=== PATIENT | male | born 1970 | race Caucasian/White ===

== ENCOUNTER 2023-12-25 15:07 | Emergency (ER) | payer BC, OTHER ==
[2023-12-25] MEDS ORDERED: XYLOCAINE 1% HCL 20 ML MDV ONE ×2 (15:23→16:19)
[2023-12-25 15:29] VITALS: BP 125/76; PULSE 69; RESP 20; TEMP 98.1; O2SAT 96
[2023-12-25] MEDS ORDERED: BACIGUENT PACKET ONE (16:19)
[2023-12-25] MEDS ORDERED: Adacel Vial IM ONE (16:19)
[2023-12-25] MEDS: BACIGUENT PACKET TP ONE ×2 (16:20→16:26)
[2023-12-25] MEDS: Adacel Vial IM ONE (16:21)
[2023-12-25] MEDS: XYLOCAINE 1% HCL 20 ML MDV IJ ONE ×2 (16:25→16:26)
--- NOTE | 2023-12-25 16:39 | ERPHSYRPT ---
- History of Present Illness Time Seen by Provider: 12/25/23 16:00 Source: patient Exam Limitations: no limitations Patient Subjective Stated Complaint: Laceration Triage Nursing Assessment: Patient ambulated back to ED and transferred self to bed. Patient A+O X 3. Patient's skin pink, warm and dry. Patient complains of laceration to left hand in between 1st and 2nd digit while he was using a chain saw it slipped causing laceration. Patient has laceration in between 1st and 2nd digit 3 cm X 1.2 cm. Physician History: 53yo m presents via private vehicle for laceration to left hand. Pt states he cut his hand w/ a small battery powered chainsaw shortly [employer]. Pt denies any numbness/tingling in the fingers, has full ROM of wrist, hand and fingers. Pt is not sure when his last tetanus shot was given. Timing/Duration: today Severity: moderate Location: hands Possible Causes: other (chainsaw laceration) Allergies/Adverse Reactions: No Known Drug Allergies Allergy (Unverified 12/25/23 15:18) Hx Tetanus, Diphtheria Vaccination/Date Given: Yes Hx Influenza Vaccination/Date Given: No Hx Pneumococcal Vaccination/Date Given: No Immunizations Up to Date: Yes Travel Risk - International Travel Have you traveled outside of the country in past 3 weeks: No - Emerging Infectious Disease Are you exhibiting symptoms associated with any current EIDs: No - Review of Systems Constitutional: No Symptoms Respiratory: No Symptoms Cardiac: No Symptoms Skin: Other (laceration) - Past Medical History Pertinent Past Medical History: No Neurological History: No Pertinent History ENT History: No Pertinent History Cardiac History: No Pertinent History Respiratory History: No Pertinent History Endocrine Medical History: No Pertinent History Musculoskeletal History: No Pertinent History GI Medical History: No Pertinent History History: No Pertinent History Psycho-Social History: No Pertinent History Male Reproductive Disorders: No Pertinent History - Past Surgical History Past Surgical History: No Neuro Surgical History: No Pertinent History Cardiac: No Pertinent History Respiratory: No Pertinent History Gastrointestinal: No Pertinent History Genitourinary: No Pertinent History Musculoskeletal: No Pertinent History Male Surgical History: No Pertinent History - Social History Smoking Status: Never smoker Exposure to second hand smoke: No Drug Use: none - Social Determinants of Health Will the patient participate in the screening: Yes Do you worry about a steady place to live?: No Do you have any problems with any of the following?: No known problems In the past 12 months,have you had to go without utilities?: No Transportation Issues: No Has anyone in your support network made you feel unsafe?: No Have you or anyone in your house had to go without enough: No - Nursing Vital Signs Nursing Vital Signs: Initial Vital Signs Temperature 98.1 F 12/25/23 15:20 Pulse Rate 69 12/25/23 15:20 Respiratory Rate 20 12/25/23 15:20 Blood Pressure 125/76 12/25/23 15:20 O2 Sat by Pulse Oximetry 96 12/25/23 15:20 Pain Scale Pain Intensity 0 - Physical Exam General Appearance: no apparent distress, alert Respiratory Exam: normal breath sounds, lungs clear, airway intact, No chest tenderness, No respiratory distress Cardiovascular Exam: normal heart sounds, normal peripheral pulses Extremity Exam: lacerations (left hand, dorsal aspect b/w MIP of thumb and index finger - 2cm non-linear laceration, jagged edges, difficult to approximate, small amount active bleeding, neurovascularly intact throughout left hand and digits) Neurologic Exam: alert, oriented x 3, cooperative Skin Exam: normal color, warm, dry SpO2 Interpretation: normal SpO2: 96 O2 Delivery: Room Air Procedures - Laceration/Wound Repair Left Posterior Hand Time of Procedure: 14:15 Wound Location: Left, hand Wound Length (cm): 2 Wound's Depth, Shape: superficial, irregular Wound Explored: to base Irrigated: Yes Hibiclens Prep: Yes Anesthesia: 1% Lidocaine Volume Anesthetic (ccs): 5 Wound Debrided: extensive Wound Repaired With: sutures Suture Size/Type: 3-0, prolene Number of Sutures: 7 Layer Closure?: No Sterile Dressing Applied?: Yes Splint Applied?: No Sling Applied?: No Ordered Tests: Medication Summary Discontinued Medications Generic Name Dose Route Start Last Admin Trade Name Freq PRN Reason Stop Dose Admin Bacitracin Zinc 0.9 each 12/25/23 16:16 12/25/23 16:20 Bacitracin Packet 1 Each Pckt TP 12/25/23 16:17 0.9 each STAT ONE Administration Bacitracin Zinc 0.9 each 12/25/23 16:18 12/25/23 16:26 Bacitracin Packet 1 Each Pckt TP 12/25/23 16:19 Not Given STAT ONE Bacitracin Zinc Confirm 12/25/23 16:19 Bacitracin Packet 1 Each Pckt Administered 12/25/23 16:20 Dose 1 each .ROUTE .STK-MED ONE Diphtheria/Tetanus/Acell Pertussis 0.5 ml 12/25/23 16:16 12/25/23 16:21 Tdap --Diph,Pertuss(Acell),Tet Vac/Pf 0.5 Ml Vial IM 12/25/23 16:17 0.5 ml .ONCE ONE Administration Diphtheria/Tetanus/Acell Pertussis Confirm 12/25/23 16:19 Tdap --Diph,Pertuss(Acell),Tet Vac/Pf 0.5 Ml Vial Administered 12/25/23 16:20 Dose 0.5 ml IM .STK-MED ONE Lidocaine HCl Confirm 12/25/23 15:23 Lidocaine Hcl 1% 20 Ml Mdv 20 Ml Ml Administered 12/25/23 15:24 Dose 1 ml .ROUTE .STK-MED ONE Lidocaine HCl 5 ml 12/25/23 16:13 12/25/23 16:25 Lidocaine Hcl 1% 20 Ml Mdv 20 Ml Ml IJ 12/25/23 16:14 5 ml STAT ONE Administration Lidocaine HCl 4 ml 12/25/23 16:18 12/25/23 16:26 Lidocaine Hcl 1% 20 Ml Mdv 20 Ml Ml IJ 12/25/23 16:19 Not Given STAT ONE Lidocaine HCl Confirm 12/25/23 16:19 Lidocaine Hcl 1% 20 Ml Mdv 20 Ml Ml Administered 12/25/23 16:20 Dose 4 ml .ROUTE .STK-MED ONE - Progress Progress: improved Counseled pt/family regarding: need for follow-up Medical Desision Making - Diagnostic Testing Diagnostic test were ordered, analyzed, and reviewed by me: No - Risk of complications Minimal Risk: Minimal risk of morbidity - Departure Departure Disposition: Home Clinical Impression: Contact with chainsaw as cause of accidental injury Laceration of left hand Qualifiers: Encounter type: initial encounter Foreign body presence: without foreign body Qualified Code(s): S61.412A - Laceration without foreign body of left hand, initial encounter Condition: Stable Critical Care Time: No Referrals: TRAE GOTTLIEB [NON-STAFF PHY W/O PRIVILEGES] - Follow up/PCP as directed Instructions: Laceration Repair With Stitches ED Additional Instructions: plan to dc home 7 sutures placed 7d course doxycylcline prescribed remove in 14d keep clean/dry when possible, use coband and gauze wrap while using hand return to ED if: develop fevers that do not resolve w/ tylenol, wound re-opens, wound starts to drain or ooze Prescriptions: Doxycycline Hyclate 100 mg PO BID #7 tablet
== END 2023-12-25 16:54 | disposition home or self-care (01) ==
LOC: ED 15:07
DX: S61.412A Laceration without foreign body of left hand, initial encounter (principal); W29.3XXA Contact with powered garden and outdoor hand tools and machinery, initial encounter; Z23 Encounter for immunization
CPT/HCPCS: 12001; 90471; 90715; 96372; 99283; A9270-GY